=== PATIENT | female | born 1995 | race Caucasian/White ===

== ENCOUNTER → 2022-03-31 09:04 | Outpatient (CLI) | payer OTHER, SELFPAY ==
[2022-03-31 10:49] LABS: Free T4 (Free Thyroxine) 0.79 ng/dl (0.78-2.19)
[2022-03-31 11:03] LABS: Thyroid Stimulating Hormone 4.21 uIU/mL (0.465-4.68)
[2022-04-01 09:09] LABS: Thyroid Peroxidase Antibodies 296 IU/mL (0-34)
[2022-04-08 03:39] LABS: Thyroglobulin Level 3.7 IU/mL (0.0-0.9); Thyroglobulin RIA CHARGE YES; Thyroglobulin by RIA 21 ng/mL (.)
== END ==
DX: O03.9 Complete or unspecified spontaneous abortion without complication (principal)
CPT/HCPCS: 36415; 84439; 84443; 86376; 86800

== ENCOUNTER → 2022-04-04 07:07 | Outpatient (CLI) | payer OTHER, SELFPAY ==
[2022-04-04 09:11] LABS: HCG,Quantitative 2928 mIU/ml (0-5.42)
== END ==
PROVIDERS: Physician Assistant; Visit Provider Obstetrics & Gynecology
DX: N92.6 Irregular menstruation, unspecified (principal)
CPT/HCPCS: 36415; 84702

== ENCOUNTER → 2022-04-06 10:21 | Outpatient (CLI) | payer OTHER, SELFPAY ==
[2022-04-06 11:03] LABS: HCG,Quantitative 2666 mIU/ml (0-5.42)
== END ==
PROVIDERS: Visit Provider Obstetrics & Gynecology
DX: Z34.90 Encounter for supervision of normal pregnancy, unspecified, unspecified trimester (principal)
CPT/HCPCS: 36415; 84702

== ENCOUNTER → 2022-08-09 09:03 | Outpatient (CLI) | payer OTHER, SELFPAY ==
[2022-08-09 10:24] LABS: HCG,Quantitative 499 mIU/ml (0-5.42)
[2022-08-10 10:13] LABS: Progesterone 16.3 ng/mL (.)
== END ==
PROVIDERS: Visit Provider Obstetrics & Gynecology
DX: Z34.90 Encounter for supervision of normal pregnancy, unspecified, unspecified trimester (principal); Z3A.01 Less than 8 weeks gestation of pregnancy
CPT/HCPCS: 36415; 84144; 84702

== ENCOUNTER → 2022-08-15 08:27 | Outpatient (CLI) | payer OTHER, SELFPAY ==
[2022-08-15 11:11] LABS: HCG,Quantitative 5298 mIU/ml (0-5.42)
== END ==
PROVIDERS: Visit Provider Obstetrics & Gynecology
DX: Z34.90 Encounter for supervision of normal pregnancy, unspecified, unspecified trimester (principal)
CPT/HCPCS: 36415; 84702

== ENCOUNTER 2022-09-03 08:58 | Emergency (ER) | payer OTHER, SELFPAY ==
[2022-09-03 09:00] VITALS: BP 141/91; PULSE 106; RESP 20; TEMP 36.7; O2SAT 100; BMI 19.2
--- NOTE | 2022-09-03 09:15 | EXP.UTC ---
Discharge Plan Disposition Patient Disposition: Home, Self-Care Condition: Good Prescriptions Prescriptions: New azithromycin [Zithromax Z-Ej] 250 mg tablet See Rx Instructions .ROUTE .COMPLEX 5 Days Qty: 6 0RF Rx Instructions: For 250 mg dose pack: take 500 mg today (day 1), then 250 mg for 4 days (days 2-5) No Action pyridoxine (vitamin B6) [Vitamin B-6] 25 mg tablet 25 mg PO DAILY [facility] (doxylamine) 25 mg tablet 25 mg PO DAILY Referrals Follow up/Referrals: Provider,Referral, MD [Primary Care Provider] - See instructions Activity Restrictions/Add. Instructions Additional Instructions/Restrictions: *Monitor Temp, Over the counter Motrin or Tylenol as directed/as needed Tylenol every 4 hours and Motrin every 6 hours (as long as your family doctor has told you that you can take it) for fever or pain. and straight to ER if unable to lower temp less than 101.0 after medication given *Warm salt water gargles may help to soothe the throat *Throat Lozenges? *Warm fluids like tea with honey may help to soothe the throat? *Sleep elevated *Humidifier/Vaporizer Your throat swab was sent for culture. Those results are typically sent to your primary care. Be sure to follow up in 2-3 days with your family doctor/primary care physician if no improvement so they can review those result and treat if necessary. If you don?t have a primary care doctor, I recommend you get one but in the mean time, you will have to return to a walk in clinic Follow up IMMEDIATELY for new or worsening symptoms or no Noticeable improvement over the next 48-72 hours. 911 for difficulty breathing or swallowing Clinical Impressions Clinical Impression: Pharyngitis Stand Alone Forms Stand Alone Forms: Work/School Release Instructions Patient Instructions: Sore Throat, DI for Fever (Symptom) -- Adult Discharge ED Provider: Claire Montalvo [facility] General Stated complaint: Sore throat, fever, bodyaches, headache Mode of Arrival: Ambulatory Source of Information: Patient Limitations: No Limitations Time Seen by Provider: 09/03/22 09:15 Description of Symptoms (Recalled from Triage Doc. by RN): PATIENT C/O SORE THROAT AND EAR PAIN SINCE SATURDAY. SHE REPORTS HER HAD THE FLU LAST WEEK HEENT Symptoms (Recalled from RN notes): Yes Resp Symptoms (Recalled from RN notes): No Skin Symptoms (Recalled from RN notes): No MS Symptoms (Recalled from RN notes): No Functional Status (Recalled from RN notes): WNL History of Present Illness Provider Complaint: Patient 9wks OB states that he had flu last week and she started on Sat with sore throat, headache and feeling achy all over that has continued to get worse States that her throat is swollen and hurts when she swallows and pain shoots into her ears along with fever States that today she was still not feeling well so she came in to get checked Related Data Home Medications Medication Instructions Recorded Confirmed doxylamine succinate 25 mg tablet 25 mg PO DAILY Supplement 09/03/22 09/03/22 ([employer] (doxylamine)) pyridoxine (vitamin B6) 25 mg 25 mg PO DAILY Supplement 09/03/22 09/03/22 tablet (Vitamin B-6) Previous Rx's Medication Instructions Recorded azithromycin 250 mg tablet See Rx Instructions PO .COMPLEX 5 09/03/22 (Zithromax Z-Ej) days #6 tabs Allergies Allergy/AdvReac Type Severity Reaction Status Date / Time Sulfa (Sulfonamide Allergy Verified 09/03/22 09:15 Antibiotics) Worker's Comp Is this a Worker's Comp case?: No [facility] Disclaimer: The information contained in this section may have been updated after the patient was seen, as this information can be updated by other users. Medical History (Updated 09/03/22 @ 10:16 by Claire Montalvo APRN) Anxiety Depression History of gastroesophageal reflux (GERD) Migraine Thyroid disease Social History (Updated 09/03/22 @ 09:14 by Flash
[2022-09-03 09:28] LABS: UTC Influenza A Antigen Negative (Negative); UTC Influenza B Antigen Negative (Negative); UTC Strep Screen (Rapid) Negative (Negative)
[2022-09-03 09:45] VITALS: BP 141/91; PULSE 106; RESP 20; TEMP 36.7; O2SAT 100
[2022-09-03 09:46] LABS: Monoscreen (Rapid) Negative (Negative)
== END 2022-09-03 10:30 | disposition home or self-care (01) ==
PROVIDERS: Emergency Provider Nurse Practitioner
DX: J02.9 Acute pharyngitis, unspecified (principal); R50.9 Fever, unspecified; R52 Pain, unspecified; Z20.828 Contact with and (suspected) exposure to other viral communicable diseases
CPT/HCPCS: 86318; 87804; 87880; 99212; 99213; C9803; G0463; U0003; U0005

== ENCOUNTER → 2022-09-12 09:33 | Outpatient (CLI) | payer OTHER, SELFPAY ==
[2022-09-12 11:12] LABS: Thyroid Stimulating Hormone 3.99 uIU/mL (0.465-4.68)
[2022-09-13 08:45] LABS: Progesterone 11.2 ng/mL (.)
== END ==
PROVIDERS: Visit Provider Obstetrics & Gynecology
DX: Z34.90 Encounter for supervision of normal pregnancy, unspecified, unspecified trimester (principal); R03.0 Elevated blood-pressure reading, without diagnosis of hypertension; Z86.39 Personal history of other endocrine, nutritional and metabolic disease; Z87.59 Personal history of other complications of pregnancy, childbirth and the puerperium
CPT/HCPCS: 36415; 84144; 84443; 84702; 86850; 87491; 87591

== ENCOUNTER → 2022-09-14 09:08 | Outpatient (CLI) | payer OTHER, SELFPAY | PROVIDERS: Visit Provider Obstetrics & Gynecology | DX: Z34.90 Encounter for supervision of normal pregnancy, unspecified, unspecified trimester (principal) | CPT/HCPCS: 36415; 84702 ==

== ENCOUNTER → 2022-09-17 07:25 | Outpatient (CLI) | payer OTHER, SELFPAY ==
[2022-09-14 23:08] LABS: Neisseria gonorrhoeae, NAA Negative (Negative)
== END ==
PROVIDERS: Visit Provider Obstetrics & Gynecology
DX: Z34.90 Encounter for supervision of normal pregnancy, unspecified, unspecified trimester (principal)
CPT/HCPCS: 36415; 84702; 87491; 87591

== ENCOUNTER 2022-09-25 12:36 | Emergency (ER) | payer OTHER, SELFPAY ==
[2022-09-25] VITALS (7 sets, daily range): BP systolic 119–137; BP diastolic 81–106; PULSE 67–98; RESP 15–20; TEMP 36.3; O2SAT 99–100; BMI 18.3
--- NOTE | 2022-09-25 13:17 | PC.NURSE ---
records being sent from [facility] for yesterday us, labs and visit information.
[2022-09-25 13:37] LABS: Chloride 107 mmol/L (98-107); Sodium 141 mmol/L (136-145)
[2022-09-25 13:38] LABS: Basophils # 0.1 K/mm3 (0-0.2); Basophils % 0.5 % (0.1-2.0); Eosinophils # 0.1 K/mm3 (0.0-0.4); Eosinophils % 0.6 % (0.1-12.0); Hematocrit 38.9 % (37.0-47.0); Hemoglobin 13.3 g/dL (12.2-16.2); Lymphocytes # 2.5 K/mm3 (0.7-4.5); Lymphocytes % 19.1 % (10-50); Mean Corpuscular HGB Conc 34.3 g/dL (31.8-35.4); Mean Corpuscular Hemoglobin 28.9 pg (27.0-31.2); Mean Corpuscular Volume 84.3 fl (81-99); Mean Platelet Volume 7.6 fl (7.4-10.4); Monocytes # 0.4 K/mm3 (0.1-1.0); Monocytes % 3.1 % (1.7-9.3); Neutrophils # 9.8 K/mm3 (1.8-7.8); Neutrophils % 76.7 % (37.0-80.0); Platelet Count 327 K/mm3 (142-424); Potassium 3.6 mmoL/L (3.5-5.1); Red Blood Count 4.61 M/mm3 (4.20-5.40); Red Cell Distribution Width 14.8 % (11.5-17.5); White Blood Count 12.8 K/mm3 (4.8-10.8)
[2022-09-25 13:40] LABS: Alanine Aminotransferase 16 U/L (12-78); Alkaline Phosphatase 46 U/L (38-126); Aspartate Amino Transferase 27 U/L (14-36); Bilirubin,Total 0.7 mg/dl (0.2-1.3); Blood Urea Nitrogen 6 mg/dl (7-17); Creatinine Clearance Estimated 134 mL/min (50-200); Estimated Glomerular Filt Rate 149 ml/min (>60); GFR (African American) 180 ML/MIN (>60)
[2022-09-25 13:41] LABS: Albumin Level 4.5 g/dl (3.5-5.0); Albumin/Globulin Ratio 1.4 (1.1-1.8); Anion Gap 12.6 mEq/L (5-15); Calcium 8.6 mg/dl (8.4-10.2); Carbon Dioxide 25 mmol/L (22.0-30.0); Globulin 3.2 g/dL (1.3-3.2); Glucose 115 mg/dl (74-100); Total Protein,Serum 7.7 g/dl (6.3-8.2)
[2022-09-25 13:57] LABS: HCG,Quantitative 8321 mIU/ml (0-5.42)
--- NOTE | 2022-09-25 14:00 | PC.NURSE ---
rounded on patient, spouse at BS. pt reports she is in pain, but no other needs at this time. call light within reach. waiting to be seen by ER MD
--- NOTE | 2022-09-25 14:04 | HMH.EDGENADL ---
Discharge Plan Disposition Patient Disposition: Home, Self-Care Condition: Good Chief Complaint: Abdominal Pain Prescriptions Prescriptions: No Action prenat.vits,ascencion,[id number]-[id number] Tablet 1 tab PO DAILY magnesium oxide 400 mg magnesium tablet 800 mg PO BID Qty: 120 2RF progesterone micronized [Prometrium] 200 mg capsule 200 mg PO HS 42 Days Qty: 42 0RF pyridoxine (vitamin B6) [Vitamin B-6] 25 mg tablet 25 mg PO DAILY [employer] (doxylamine) 25 mg tablet 25 mg PO DAILY Referrals Follow up/Referrals: Provider,Referral, MD [Primary Care Provider] - See instructions Activity Restrictions/Add. Instructions Additional Instructions/Restrictions: Dr. Hall's office will call you and arrange follow-up for tomorrow or . Return to the emergency department if severe pain or severe bleeding. Clinical Impressions Clinical Impression: Complete miscarriage Instructions Patient Instructions: DI for Miscarriage Discharge ED Provider: Nguyễn Verduzco General Adult HPI General Chief complaint: Abdominal Pain Stated complaint: abd pain bleeding 8 wks preg vomiting fever Time Seen by Provider: 09/25/22 14:03 Mode of Arrival: Wheelchair Source of Information: Patient, Spouse and Medical Record Limitations: No Limitations Description of Symptoms (Recalled from ER Triage Doc. by RN): c/o lower abdomen pain with blood clots that started today. Per pt an us was completed yesterday stating the fetus did not have a pole and was measuring at 7 weeks, she should of been at 12 weeks at that time. Pt is suppose to fu next week to see if she needs a d&c. History of Present Illness HPI narrative: The patient states she is having a miscarriage. She complains of severe intermittent pelvic pain and vaginal bleeding with clots. States that she was seen at [facility] yesterday and had an ultrasound that showed an 8-week size fetus without cardiac activity and was diagnosed with a missed . She says that she is supposed to follow-up next week for another ultrasound to see if she needs a D&C. Today she complains of increased pain and passage of clots. She thinks she might of passed a small piece of tissue, did not bring it in. The patient is a 2, para 0. She had a miscarriage in March of last year. Related Data Home Medications Medication Instructions Recorded Confirmed doxylamine succinate 25 mg tablet 25 mg PO DAILY Supplement 09/03/22 09/12/22 ([employer] (doxylamine)) pyridoxine (vitamin B6) 25 mg 25 mg PO DAILY Supplement 09/03/22 09/12/22 tablet (Vitamin B-6) prenat.vits,ascencion,ism-[id number]-[id number] 1 tab PO DAILY 09/12/22 09/12/22 Previous Rx's Medication Instructions Recorded magnesium oxide 800 mg PO BID #120 tabs 09/12/22 progesterone micronized 200 mg 200 mg PO HS 6 weeks #42 caps 09/13/22 capsule (Prometrium) Allergies Allergy/AdvReac Type Severity Reaction Status Date / Time Sulfa (Sulfonamide Allergy Verified 09/12/22 08:31 Antibiotics) [facility] Disclaimer: The information contained in this section may have been updated after the patient was seen, as this information can be updated by other users. Medical History Anxiety Depression Elevated blood pressure reading History of 1 spontaneous first trimester, 03/2022 History of gastroesophageal reflux (GERD) History of ovarian cyst left History of thyroid disorder Migraine Migraines Thyroid disease Family History Other Alcoholism Anemia Asthma Cancer Hyperlipidemia Hypertension Thyroid disorder Social History Smoking Status: Unknown if ever smoked alcohol intake: never substance use type: denies use current occupational status: employed Travel in the last 8 weeks: None ROS
--- NOTE | 2022-09-25 14:11 | US_ITS ---
FINAL REPORT CLINICAL HISTORY: miscarriage FINDINGS: PELVIC ULTRASOUND The endometrial cavity is distended with heterogeneous debris throughout probably due to an aborting embryo. The right ovary measures 4.0 x 2.7 x 2.4 cm. The left ovary measures 3.0 x 2.4 x 1.4 cm. There are small bilateral ovarian follicles. IMPRESSION: Heterogeneous debris throughout a distended endometrial cavity probably due to aborting embryo. Reviewed, Interpreted and Dictated by Jam Palomares MD Transcribed by Rogelio Berman Authenticated and [facility]
--- NOTE | 2022-09-25 14:45 | PC.NURSE ---
pt to US with surgical tech via WC
--- NOTE | 2022-09-25 15:32 | PC.NURSE ---
placed call to Dr Jhaveri, Dr reproductive surgeon is Dr Rosa, she is to call back.
--- NOTE | 2022-09-25 16:05 | PC.NURSE ---
DOMINICK GARY speaking with Dr. Rosa
== END 2022-09-25 16:32 | disposition home or self-care (01) ==
PROVIDERS: Emergency Provider Emergency Medicine
DX: O03.9 Complete or unspecified spontaneous abortion without complication (principal)
CPT/HCPCS: 76817; 80053; 84702; 85025; 96374; 96375; 99285; J2405